=== PATIENT | female | born 1965 | race Caucasian/White ===

== ENCOUNTER 2019-02-11 07:26 | Outpatient (CLI) | payer OTHER ==
--- NOTE | 2019-02-11 09:22 | ULT ---
ULTRASOUND WITH DOPPLER DUPLEX VENOUS LOWER EXTREMITIES BILATERAL: 02/11/2019 8:08 a.m. HISTORY: A 53-year-old female with right lower extremity pain and bilateral lower extremity edema. TECHNIQUE: Color flow Doppler, spectral waveform analysis of pulsed Doppler, and torre-scale imaging with rylee skyler and augmentation, were used to evaluate the bilateral common femoral, femoral, popliteal, esthetic dermatologist ior tibial, and superficial femoral, veins; and the proximal portions of the profunda femoral and gre ater saphenous, veins. FINDINGS: There is normal compressibility, demonstration of blood flow by color Doppler and pulsed Doppler, and response to augmentation, in all interrogated veins. In the right popliteal fossa there is an approx imately 5.5 x 3 x 1.5 cm well circumscribed mass. It contains anechoic liquid components and a large solid component that probably represents thrombus. There is no blood flow demonstrated within this ma ss by Doppler. IMPRESSION: 1. Negative. No deep vein thrombosis in the bilateral lower extremities. 2. Evidence for thrombosed right Fraser's cyst. jnr POS: [facility]
== END 2019-02-11 07:27 | disposition home or self-care (01) ==
LOC: ULT 07:26
DX: M79.604 Pain in right leg (principal); I82.90 Acute embolism and thrombosis of unspecified vein; M71.21 Synovial cyst of popliteal space [Baker], right knee
CPT/HCPCS: 93970

== ENCOUNTER 2022-09-18 05:59 | Day surgery (SDC) | payer SELFPAY ==
[2022-09-15 10:53] VITALS: BMI 36.8
[2022-09-18] MEDS ORDERED: Propofol 500 MG/50 ML VIAL ONE (06:23)
[2022-09-18] MEDS ORDERED: Midazolam HCl 2 mg/2 ml Vial ONE (06:23)
[2022-09-18] MEDS ORDERED: fentaNYL 50 mcg/mL 1 mL Vial ONE (06:23)
[2022-09-18] MEDS ORDERED: Acetaminophen 500 MG TAB ONE (06:24)
[2022-09-18] MEDS ORDERED: Ketorolac Tromethamine 30 MG/ML VIAL ONE (06:24)
[2022-09-18] MEDS ORDERED: Bupivacaine 0.25% HCL 30 ML VIAL ONE (06:46)
[2022-09-18] MEDS ORDERED: EPINEPHrine 1 MG/ML AMP ONE (06:46)
[2022-09-18] MEDS ORDERED: Lidocaine 1% (PF) 30 ML VIAL ONE (06:46)
[2022-09-18] MEDS ORDERED: Famotidine/PF 20 mg/2ml Vial ONE (06:52)
[2022-09-18] MEDS ORDERED: Ondansetron PF 4 MG/2 ML Vial ONE (07:05)
[2022-09-18] MEDS ORDERED: Sodium Chloride 0.9% 100 ML ONE (07:22)
[2022-09-18] MEDS ORDERED: CEFAZOLIN 2 GM VIAL ONE (07:22)
== END 2022-09-18 09:03 | disposition home or self-care (01) ==
LOC: SDC 05:59
PROVIDERS: ATTEND Specialist
PROC: 05H533Z Insertion of Infusion Device into Right Subclavian Vein, Percutaneous Approach (ICD-10-PCS; principal; 2022-09-18)
DX: C79.60 Secondary malignant neoplasm of unspecified ovary (principal)
CPT/HCPCS: 71045; C1788; J0171; J1642; J1885; J2001; J2250; J2405; J2704; J3010; J3490; S0020; S0028

== ENCOUNTER 2023-01-01 10:26 | Emergency (ER) | payer SELFPAY ==
[~2023-01-01 10:26] MED LIST: Iopamidol-370 76% 500 ML MDV (1 ML CHARGE) ONE
[2023-01-01] MEDS ORDERED: Morphine 4 MG/ML VIAL ONE ×2 (12:02→17:50)
[2023-01-01] MEDS ORDERED: Ondansetron PF 4 MG/2 ML Vial ONE (12:02)
[2023-01-01 12:17] LABS: Hematocrit 31.3 % (36.0-47.0); Hemoglobin 10.3 g/dL (12.0-16.0); Mean Corpuscular HGB CONC 32.9 g/dL (32.0-36.0); Mean Corpuscular Hemoglobin 31.8 pg (27.0-31.0); Mean Corpuscular Volume 96.6 fl (78.0-98.0); Mean Platelet Volume 10.1 fL (7.4-10.4); Platelet Count 204 10x3/uL (130-400); RBC Distribution Width 16.2 % (11.5-14.5); Red Blood Cell (RBC) Count 3.24 mill/uL (4.20-5.40); White Blood Cell (WBC) Count 9.7 10x3/uL (4.8-10.8)
[2023-01-01 12:18] LABS: Delete Auto Diff?? YES; Manual Diff?? YES
[2023-01-01 12:31] LABS: INR-International Normal Ratio 1.1; PTT 40.2 sec (22.9-36.1); Prothrombin Time 14.6 sec (12.0-14.7)
[2023-01-01 12:39] LABS: Band 25 % (5-11); CellaVision Operator ID LAB.GE; Eosinophils 2 % (0-10); Lymphocytes 5 % (21-51); Monocytes 10 % (0-10); Neutrophil 58 % (42-75); Platelet Adequacy Comment Platelets Normal; Polychromasia SLIGHT = 2-3 cells HPF (0-2); Total Cell Count 100
[2023-01-01 12:40] LABS: ALT (SGPT) 10 U/L (8-55); AST (SGOT) 13 U/L (5-34); Albumin 3.4 g/dL (3.5-5.0); Alkaline Phosphatase 104 U/L (40-110); Anion Gap 21 mmol/L (10-20); BUN (Urea Nitrogen) 7 mg/dL (9.8-20.1); Bilirubin, Total 0.5 mg/dL (0.2-1.2); CK (CPK) 15 U/L (29-168); Calc. Creatinine Clearance 0 mL/min (70-130); Calcium 9.8 mg/dL (7.8-10.44); Carbon Dioxide 19 mmol/L (22-29); Chloride 99 mmol/L (98-107); Estimated GFR 108; Globulin 2.8 g/dL (2.4-3.5); Glucose 89 mg/dL (70-105); Lipase Less than 4 U/L (8-78); Potassium 3.3 mmol/L (3.5-5.1); Protein, Total 6.2 g/dL (6.0-8.3); Sodium 136 mmol/L (136-145)
[2023-01-01 13:14] LABS: Troponin I Less than 0.010 ng/mL (< 0.028)
[2023-01-01 13:59] LABS: Bilirubin Negative (Negative); Blood, Urine 1+ (Negative); CAUTI Indications for Culture Pelvic or flank pain; Clarity Extra Turbid (Clear); Glucose, Urine (Dipstick) Normal (Negative); Ketone, Urine Greater than 150 mg/dL (Negative); Leukocyte 500 Leu/uL (Negative); Nitrite 2+ (Negative); Protein, Urine (Dipstick) 50 mg/dL (Neg-Trace); Specific Gravity, Urine 1.018 (1.002-1.036); Squamous Epithelial 0-3 HPF (0-3); Urobilinogen Normal mg/dL (Less than 2); WBC/HPF Greater than 50 HPF (0-3); pH, Urine 5.5 (5.0-9.0)
[2023-01-01 14:06] LABS: Bacteria/HPF 3+ HPF (None Seen)
[2023-01-01 14:07] LABS: Urine Culture Reflex Yes Yes
[2023-01-01 14:30] LABS: SARS-CoV-2 NAA Rapid Test Not Detected (NotDetected)
[2023-01-01] MEDS ORDERED: Ketorolac Tromethamine 30 MG/ML VIAL ONE (14:56)
[2023-01-01] MEDS ORDERED: cefTRIAXone (ROCEPHIN) 2 GM VIAL ONE (14:56)
[2023-01-01] MEDS ORDERED: Sodium Chloride 0.9% 100 ML ONE (14:57)
== END 2023-01-01 17:56 | disposition short-term general hospital (02) ==
LOC: ERS 10:26
DX: K65.9 Peritonitis, unspecified (principal); E86.0 Dehydration; N39.0 Urinary tract infection, site not specified; A41.9 Sepsis, unspecified organism; Z20.822 Contact with and (suspected) exposure to COVID-19
CPT/HCPCS: 71045; 74177; 80053; 81001; 82550; 83605; 83690; 84484; 85025; 85610; 85730; 87040; 87077; 87086; 87186; 93005; 94760; 96361; 96365; 96368; 96375; 96376; J0696; J1885; J2270; J2405; J3490